=== PATIENT | female | born 2000 | race Caucasian/White ===

== ENCOUNTER → 2020-01-01 | Outpatient (REF) | payer OTHER, MEDICAID ==
[2020-01-01 15:25] LABS: CHLAMYDIA DNA AMPLIFICATION NEGATIVE (NEGATIVE); GC DNA AMPLIFICATION NEGATIVE (NEGATIVE)
== END ==
LOC: M SFHCWAGY 13:19
PROVIDERS: ATTEND Nurse Practitioner Women's Health
DX: Z11.3 Encounter for screening for infections with a predominantly sexual mode of transmission (principal)